=== PATIENT | female | born 1945 | race Caucasian/White ===

== ENCOUNTER 2019-03-26 09:38 | Outpatient (CLI) | payer MEDICARE ==
--- NOTE | 2019-03-26 10:54 | BD ---
DEXA Bone Density History: Post-menopausal. Lumbar Spine: BMD (g/cm2) L1 0.615 T-Score: -3.4 L2 0.688 T-Score: -3.1 L3 0.834 T-Score: -2.3 L4 0.794 T-Score: -2.4 L1-L4 0.738 T-Score: -2.8 Femoral Neck: 0.497 T-Score: -3.2 Total Femur: 0.643 T-Score: -2.0 Impression: 1. Osteoporosis of the lumbar spine and left femoral neck. POS: [facility]
== END 2019-03-26 09:39 | disposition home or self-care (01) ==
LOC: BICMAMMO 09:38
PROVIDERS: ATTEND Nurse Practitioner
DX: M81.0 Age-related osteoporosis without current pathological fracture (principal)
CPT/HCPCS: 77080

== ENCOUNTER 2020-07-16 09:38 | Outpatient (CLI) | payer MEDICARE ==
--- NOTE | 2020-07-16 11:14 | BD ---
DEXA BONE DENSITY STUDY: Date: 07/16/2020 HISTORY: Postmenopausal screening. COMPARISON: 03/26/2019. FINDINGS: Lumbar Spine: BMD (g/cm2) L1 0.719 T-Score: -2.5 L2 0.694 T-Score: -3.0 L3 0.802 T-Score: -2.6 L4 0.815 T-Score: -2.2 Total 0.761 T-Score: -2.6 Left Femoral Neck: 0.543 T-Score: -2.8 Total Femur: 0.647 T-Score: -2.4 Compared with the prior examination, there is statistically significant increase in bone mineral dens ity, though bone mineral density meets criteria for osteoporosis on the current study. IMPRESSION: Calculated bone mineral density meets WHO criteria for osteoporosis and places the patient at promine nt increased risk for fracture. POS: [facility]
--- NOTE | 2020-07-16 16:16 | MMO ---
Bilateral MAMMO Bilat Screen [facility]. CLINICAL HISTORY: Patient is 75 years old and is seen for screening. The patient has the following family history of breast cancer: aunt, at age 60. The patient has no personal history of cancer. VIEWS: The views performed were: bilateral craniocaudal with tomosynthesis and bilateral mediolateral oblique with tomosynthesis. This study has been interpreted with the assistance of computer-aided detection. MAMMOGRAM FINDINGS: The breasts are heterogeneously dense, which could obscure a lesion on mammography. There are stable benign appearing calcifications seen in both breasts. There are no suspicious masses, suspicious calcifications, or new areas of architectural distortion. IMPRESSION: THERE IS NO MAMMOGRAPHIC EVIDENCE OF MALIGNANCY. A ROUTINE FOLLOW-UP MAMMOGRAM IN 1 YEAR IS RECOMMENDED. THE RESULTS OF THIS EXAM WERE SENT TO THE PATIENT. ACR BI-RADS Category 2 - Benign finding MAMMOGRAPHY NOTE: 1. A negative mammogram report should not delay a biopsy if a dominant of clinically suspicious mass is present. 2. Approximately 10% to 15% of breast cancers are not detected by mammography. 3. Adenosis and dense breasts may obscure an underlying neoplasm. Reported by: KAROLYN STERLING MD Electonically Signed: [id number]
== END 2020-07-16 09:39 | disposition home or self-care (01) ==
LOC: BICMAMMO 09:38
PROVIDERS: ATTEND Nurse Practitioner
DX: Z12.31 Encounter for screening mammogram for malignant neoplasm of breast (principal); M81.0 Age-related osteoporosis without current pathological fracture; Z80.3 Family history of malignant neoplasm of breast
CPT/HCPCS: 77063; 77067; 77080

== ENCOUNTER 2021-04-01 10:22 | Outpatient (CLI) | payer MEDICARE | END 2021-04-01 10:23 | disposition home or self-care (01) | LOC: BICRAD 10:22 | PROVIDERS: ATTEND Internal Medicine Critical Care Medicine | DX: R06.00 Dyspnea, unspecified (principal) | CPT/HCPCS: 71046 ==

== ENCOUNTER 2021-08-11 09:27 | Outpatient (CLI) | payer MEDICARE | END 2021-08-11 09:28 | disposition home or self-care (01) | LOC: BICMAMMO 09:27 | PROVIDERS: ATTEND Nurse Practitioner | DX: M81.0 Age-related osteoporosis without current pathological fracture (principal) | CPT/HCPCS: 77080 ==

== ENCOUNTER 2024-01-02 13:46 | Outpatient (CLI) | payer MEDICARE | END 2024-01-02 13:47 | disposition home or self-care (01) | LOC: BICMAMMO 13:46 | PROVIDERS: ATTEND Nurse Practitioner | DX: Z12.31 Encounter for screening mammogram for malignant neoplasm of breast (principal); Z13.820 Encounter for screening for osteoporosis; M81.0 Age-related osteoporosis without current pathological fracture; Z80.3 Family history of malignant neoplasm of breast; Z78.0 Asymptomatic menopausal state | CPT/HCPCS: 77063; 77067; 77080 ==

== ENCOUNTER 2024-03-26 16:50 | Outpatient (CLI) | payer MEDICARE | END 2024-03-26 16:51 | disposition home or self-care (01) | LOC: SCSRAD 16:50 | PROVIDERS: ATTEND Nurse Practitioner | DX: J45.41 Moderate persistent asthma with (acute) exacerbation (principal); J18.9 Pneumonia, unspecified organism | CPT/HCPCS: 36415; 71046; 80048; 85025; 87635 ==

== ENCOUNTER 2024-06-13 08:03 | Outpatient (CLI) | payer MEDICARE | END 2024-06-13 08:04 | disposition home or self-care (01) | LOC: RAD 08:03 | PROVIDERS: ATTEND Internal Medicine Critical Care Medicine | DX: J18.9 Pneumonia, unspecified organism (principal); J98.4 Other disorders of lung; J92.9 Pleural plaque without asbestos; S22.31XD Fracture of one rib, right side, subsequent encounter for fracture with routine healing | CPT/HCPCS: 71046 ==

== ENCOUNTER 2025-05-16 18:21 | Emergency (ER) | payer MEDICARE ==
[2025-05-16 21:49] LABS: #Basophils Less than 0.03 10x3/uL (0.0-0.2); #Eosinophils Less than 0.03 10x3/uL (0.0-0.7); #Monocytes 0.21 10x3/uL (0.11-0.59); #Neutrophils 3.95 10x3/uL (1.40-6.50); %Basophils 0.2 % (0.0-1.0); %Eosinophils 0.2 % (0.0-10.0); %Lymphocytes 15.9 % (21.0-51.0); %Monocytes 4.2 % (0.0-10.0); %Neutrophils 79.3 % (42.0-75.0); Hematocrit 35.4 % (36.0-47.0); Mean Corpuscular HGB CONC 33.9 g/dL (32.0-36.0); Mean Corpuscular Hemoglobin 31.3 pg (27.0-31.0); Mean Corpuscular Volume 92.4 fL (78.0-98.0); Mean Platelet Volume 8.4 fL (7.4-10.4); Platelet Count 245 10x3/uL (130-400); RBC Distribution Width 12.7 % (11.5-14.5); Red Blood Cell (RBC) Count 3.83 mill/uL (4.20-5.40); White Blood Cell (WBC) Count 4.98 10x3/uL (4.8-10.8)
[2025-05-16 22:06] LABS: ALT (SGPT) 14 U/L (Less than 34); AST (SGOT) 29 U/L (11-34); Albumin 4.2 g/dL (3.1-4.5); Alkaline Phosphatase 61 U/L (40-110); Anion Gap 17 mmol/L (10-20); BUN (Urea Nitrogen) 17 mg/dL (9.8-20.1); Bilirubin, Total 0.6 mg/dL (0.3-1.2); Calc. Creatinine Clearance 0 mL/min (70-130); Calcium 9.4 mg/dL (7.8-10.44); Carbon Dioxide 24 mmol/L (23-31); Chloride 105 mmol/L (98-107); Estimated GFR 88; Globulin 2.8 g/dL (2.4-3.5); Glucose 98 mg/dL (83-110); Potassium 3.7 mmol/L (3.5-5.1); Sodium 142 mmol/L (136-145)
[2025-05-16] MEDS ORDERED: Lidocaine 1% PF 5 ML VIAL ONE (22:16)
[2025-05-16] MEDS ORDERED: PROPOFOL 20 ML ONE (22:16)
[2025-05-16] MEDS ORDERED: Pantoprazole 40 MG VIAL ONE (22:34)
== END 2025-05-16 22:15 | disposition admitted as inpatient to this hospital (09) ==
LOC: ERS 18:21
DX: K22.2 Esophageal obstruction (principal)
CPT/HCPCS: 43247; 80053; 85025; 93005; 99285; J2470; J2704